=== PATIENT | male | born 1995 | race Caucasian/White ===

== ENCOUNTER 2020-06-04 11:54 | Emergency (ER) | payer BC, OTHER ==
[~2020-06-04 11:54] MED LIST: BACTROBAN NASAL1 G1 TOP; BENTYL 10MG CAP10 MG PO; CYCLOBENZAPRINE10 MG PO; CYCLOBENZAPRINE5 MG PO; FLEXERIL 10 MG10 MG PO; IBU800 MG PO; IBUPROFEN600 MG PO; IBUPROFEN800 MG PO; IMITREX50 MG PO; KEFLEX CAP 500500 MG PO; MECLIZINE HCL25 MG PO; Magic Mouthwash PO; PREDNISONE 50 M50 MG PO; PROTONIX40 MG PO; Voltaren Gel 1% TOP; ZOFRAN ODT 4 MG4 MG PO; ZOFRAN4 MG PO
[2020-06-04 12:47] LABS: HEMOGLOBIN 16.7 gm/dl (14.0-17.5); RED BLOOD COUNT 5.5 M/UL (4.20-5.50)
[2020-06-04 13:14] LABS: BUN/CREATININE RATIO 11 (0-10)
[2020-06-04] MEDS ORDERED: BENTYL 20MG TAB20 MG PO (14:04)
[2020-06-04] MEDS ORDERED: ZOFRAN4 MG PO (14:04)
== END 2020-06-04 14:18 | disposition home or self-care (01) ==
LOC: ER1 11:54
PROVIDERS: Emergency Medicine
DX: R10.11 Right upper quadrant pain (principal); R11.2 Nausea with vomiting, unspecified
CPT/HCPCS: 80053; 81001; 82150; 83690; 85025; 99284

== ENCOUNTER → 2020-07-19 | Outpatient (CLI) | payer BC, OTHER ==
[~2020-07-19] MED LIST changes: +BENTYL 20MG TAB20 MG PO; +PROAIR DIGIHAL90 MCG INH
== END ==
LOC: MRI 08:26
DX: H53.489 Generalized contraction of visual field, unspecified eye (principal)
CPT/HCPCS: 70553; A9577

== ENCOUNTER 2020-10-19 08:22 | Emergency (ER) | payer BC ==
[~2020-10-19 08:22] MED LIST changes: -PROAIR DIGIHAL90 MCG INH
[2020-10-19] MEDS ORDERED: ZOFRAN ODT 4 MG4 MG PO (10:07)
[2020-10-19] MEDS ORDERED: IBUPROFEN800 MG PO (10:07)
[2020-10-19] MEDS ORDERED: PROAIR DIGIHAL90 MCG INH (10:07)
== END 2020-10-19 10:24 | disposition home or self-care (01) ==
LOC: ER1 08:22
DX: U07.1 COVID-19 (principal)
CPT/HCPCS: 0240U; 99284

== ENCOUNTER 2021-04-25 11:06 | Emergency (ER) | payer SELFPAY ==
[~2021-04-25 11:06] MED LIST changes: +PROAIR DIGIHAL90 MCG INH
== END 2021-04-25 14:17 | disposition home or self-care (01) ==
LOC: ER1 11:06
DX: J06.9 Acute upper respiratory infection, unspecified (principal); R09.89 Other specified symptoms and signs involving the circulatory and respiratory systems; Z20.822 Contact with and (suspected) exposure to COVID-19
CPT/HCPCS: 99283; U0002

== ENCOUNTER 2021-05-12 17:28 | Emergency (ER) | payer SELFPAY | END 2021-05-13 00:39 | disposition left against medical advice (07) | LOC: ER1 17:28 | DX: U07.1 COVID-19 (principal); F17.210 Nicotine dependence, cigarettes, uncomplicated; Z90.49 Acquired absence of other specified parts of digestive tract | CPT/HCPCS: 99283; U0002 ==